=== PATIENT | male | born 1990 | race African-American/Black ===

== ENCOUNTER 2016-07-12 00:47 | Emergency (ER) | payer BC, OTHER ==
[~2016-07-12] VITALS: Ht 185.4 cm; Wt 88.0 kg
[~2016-07-12 00:47] MED LIST: DICL75TA PO
[2016-07-12 00:50] VITALS: BP 130/86; PULSE 61; RESP 16; TEMP 98.8; O2SAT 100
[2016-07-12] MEDS ORDERED: ASPIRIN 81 MG CHEW TAB PO ONE (01:30)
[2016-07-12] MEDS ORDERED: SODIUM CHLORIDE 0.9% FLUSH 10 ML FLUSH IVF PRN (01:30)
[2016-07-12] MEDS ORDERED: SODIUM CHLORID 0.9% 500 ML INJ 500 ML IV ONE (01:30)
--- NOTE | 2016-07-12 01:42 | RADRPT ---
EXAM DATE/TIME: 07/12/2016 01:22 [facility] COMPARISON: No previous studies available for comparison. INDICATIONS : Chest pain. MEDICAL HISTORY : None. SURGICAL HISTORY : None. ENCOUNTER: Initial ACUITY: 1 day PAIN SCORE: 8/10 LOCATION: Bilateral chest FINDINGS: A single view of the chest demonstrates the lungs to be symmetrically aerated without evidence of mas s, infiltrate or effusion. The cardiomediastinal contours are unremarkable. Osseous structures are intact. CONCLUSION: 1. No acute cardiopulmonary disease. Enrique Calderon MD on July 12, 2016 at 1:41 Board Certified Radiologist. This report was verified electronically.
[2016-07-12 01:53] VITALS: RESP 18; O2SAT 100
[2016-07-12 01:55] VITALS: BP_SYST 116; BP_DIAS 58; BP_DIAS 63; PULSE 57; RESP 18; O2SAT 100
[2016-07-12 01:55] LABS: AUTOMATED NEUTROPHIL # 2.7 TH/MM3 (1.8-7.7); BASOPHIL # 0.1 TH/MM3 (0-0.2); BASOPHIL % 1.1 % (0.0-2.0); EOSINOPHIL # 0.2 TH/MM3 (0-0.4); EOSINOPHIL % 3.2 % (0.0-4.0); HEMATOCRIT 41.4 % (39.0-51.0); HEMO FLAGS DIFF FINAL; LYMPH % 36.9 % (9.0-44.0); MEAN CELL VOLUME 84.1 FL (80.0-100.0); MEAN CORPUSCULAR HGB CONC 34.5 % (32.0-36.0); MONO % 9.6 % (0.0-8.0); NEUT % 49.2 % (16.0-70.0); PLATELET COUNT 291 TH/MM3 (150-450); RED BLOOD COUNT 4.93 MIL/MM3 (4.50-5.90); RED CELL DISTRIBUTION WIDTH 12.9 % (11.6-17.2); WHITE BLOOD COUNT 5.4 TH/MM3 (4.0-11.0)
--- NOTE | 2016-07-12 02:10 | PD ---
HPI Chief Complaint: Chest Pain Time Seen by Provider: 01:00 Travel History International Travel<30 days: No Contact w/Intl Traveler<30days: No Traveled to known affect area: No History of Present Illness HPI The patient is a 25 year old male who presents to the [facility] emergency department with a history of chest pain that he reports began at approximately 7 :30 PM while he was walking up stairs. He reports that the pain is been constant since then. He reports that the pain is in the center of his chest and along the left pectoral muscle. The patient reports that the pain is reproducible with touching. He reports that it is worse with taking a deep breath. He reports that he does regularly do pushups, however he has not been doing more than usual. He denies any specific injury to the area. He reports that he does have shortness of breath associated with this. He reports that the pain is sharp in character. He denies having any diaphoresis, nausea or vomiting associated with this. He reports that he did have a cough and congestion that resolved a week and a half ago. He denies having any fevers. He denies having any personal history of hypertension, diabetes mellitus, hyperlipidemia, or any family history of heart disease. The patient does however smoke presently 2 cigars per week. On review of systems, the patient does report having diarrhea for the last 3 days, proximally 4 times per day. He reports that the stool is loose. He denies having any blood in his stool or black or tarry stools. The patient denies any neck pain, symptoms of indigestion or acid reflux, abdominal pain, urinary symptoms, or neurologic symptoms. 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 Diminished Hearing: No Ulcer: Yes Influenza Vaccination: No Past Surgical History Narrative Surgical The patient's past surgical history is significant for a left shoulder surgery. Valve Replacement: Yes (shoulder ) Other Surgery: Yes (SHOULDER) Social History Alcohol Use: Yes (OCCASSIONALLY) Tobacco Use: Yes (2 cigars per week) Substance Use: No Allergies-Medications (Allergen,Severity, Reaction): Coded Allergies: No Known Allergies (Unverified , 07/12/16) Reported Meds & Prescriptions Reported Meds & Active Scripts Active Flexeril (Cyclobenzaprine HCl) 10 Mg Tab 10 Mg PO TID PRN Naproxen EC (Naproxen) 500 Mg Tabdr 500 Mg PO BID PRN Review of Systems Except as stated in HPI: all other systems reviewed are Neg General / Constitutional: No: Fever Eyes: No: Visual changes HENT: No: Headaches, Congestion Cardiovascular: Positive: Chest Pain or Discomfort, Dyspnea on exertion Respiratory: Positive: Shortness of Breath, No: Cough Gastrointestinal: Positive: Diarrhea, Changes in Bowel Habits, No: Nausea, Vomiting, Abdominal Pain, Hematochezia, Indigestion, Loss of Appetite Genitourinary: No: Dysuria Musculoskeletal: No: Pain Skin: No Rash Neurologic: No: Weakness, Focal Abnormalities, Change in Mentation, Slurred Speech, Sensory Disturbance Psychiatric: No: Depression Endocrine: No: Polydipsia Hematologic/Lymphatic: No: Easy Bruising Physical Exam Narrative General: The patient is a well-developed well-nourished male in no acute distress. Head and Neck exam: Head is normocephalic atraumatic. Eyes: EOMI, pupils are equal round and reactive to light. Nose: Midline septum with pink mucous membranes Mouth: Dentition unremarkable. Moist mucus membranes. Posterior oropharynx is not erythematous. No tonsillar hypertrophy. Uvula midline. Airway patent. Neck: No palpable lymphadenopathy. No nuchal rigidity. No thyromegaly. Cardiovascular: Regular rate and rhythm without murmurs, gallops, or rubs. The patient has chest wall tenderness on palpation along the sternal border and the left pectoral muscle. No erythema or ecchymosis. No step-off or crepitus, no flail segment. Lungs: Clear to auscultation bilaterally. No wheezes, rhonchi, or rales. Abdomen: Soft, without tenderness to palpation in all 4 quadrants of the abdomen. No guarding, rebound, or rigidity. Normal bowel sounds are audible. No tenderness on palpation of McBurney's point. Extremities: No clubbing, cyanosis, or edema. 2+ pulses in all 4 extremities. No calf tenderness on palpation. Negative Homans sign. Back: No costovertebral angle tenderness to palpation. Neurologic Exam: Grossly nonfocal. Skin Exam: No rash noted. Intact skin that is warm and dry. Data Data Last Documented VS Vital Signs Date Time Temp Pulse Resp B/P Pulse Ox O2 Delivery O2 Flow Rate FiO2 07/12/16 01:55 57 18 116/58 100 Nasal Cannula 2 116/63 07/12/16 00:50 98.8 Orders Electrocardiogram (07/12/16 01:24) B-Type Natriuretic Peptide (07/12/16 01:24) Ckmb (Isoenzyme) Profile (07/12/16 01:24) Complete Blood Count With Diff (07/12/16 01:24) Comprehensive Metabolic Panel (07/12/16 01:24) D-Dimer (07/12/16 01:24) Troponin I (07/12/16 01:24) Lipase (07/12/16 01:24) Chest, Single Ap (07/12/16 01:24) Ecg Monitoring (07/12/16 01:24) Bilateral Bp Monitoring (07/12/16 01:24) Iv Access Insert/Monitor (07/12/16 01:24) Oximetry (07/12/16 01:24) Oxygen Administration (07/12/16 01:24) Aspirin Chew (Aspirin Chew) (07/12/16 01:30) Sodium Chloride 0.9% Flush (Ns Flush) (07/12/16 01:30) Sodium Chlorid 0.9% 500 Ml Inj (Ns 500 M (07/12/16 01:30) CKMB (07/12/16 01:47) CKMB% (07/12/16 01:47) Ketorolac Inj (Toradol Inj) (07/12/16 03:15) Labs Laboratory Tests Test 07/12/16 07/12/16 01:47 02:07 White Blood Count 5.4 TH/MM3 Red Blood Count 4.93 MIL/MM3 Hemoglobin 14.3 GM/DL Hematocrit 41.4 % Mean Corpuscular Volume 84.1 FL Mean Corpuscular Hemoglobin 29.0 PG Mean Corpuscular Hemoglobin 34.5 % Concent Red Cell Distribution Width 12.9 % Platelet Count 291 TH/MM3 Mean Platelet Volume 7.8 FL Neutrophils (%) (Auto) 49.2 % Lymphocytes (%) (Auto) 36.9 % Monocytes (%) (Auto) 9.6 % Eosinophils (%) (Auto) 3.2 % Basophils (%) (Auto) 1.1 % Neutrophils # (Auto) 2.7 TH/MM3 Lymphocytes # (Auto) 2.0 TH/MM3 Monocytes # (Auto) 0.5 TH/MM3 Eosinophils # (Auto) 0.2 TH/MM3 Basophils # (Auto) 0.1 TH/MM3 CBC Comment DIFF FINAL Differential Comment Sodium Level 141 MEQ/L Potassium Level 4.1 MEQ/L Chloride Level 107 MEQ/L Carbon Dioxide Level 28.9 MEQ/L Anion Gap 5 MEQ/L Blood Urea Nitrogen 10 MG/DL Creatinine 1.01 MG/DL Estimat Glomerular Filtration 110 ML/MIN Rate Random Glucose 83 MG/DL Calcium Level 8.9 MG/DL Total Bilirubin 0.3 MG/DL Aspartate Amino Transf 24 U/L (AST/SGOT) Alanine Aminotransferase 31 U/L (ALT/SGPT) Alkaline Phosphatase 73 U/L Total Creatine Kinase 485 U/L Creatine Kinase MB 3.3 NG/ML Creatine Kinase MB % 0.7 % Troponin I LESS THAN 0.02 NG/ML B-Type Natriuretic Peptide 7 PG/ML Total Protein 7.4 GM/DL Albumin 4.1 GM/DL Lipase 126 U/L D-Dimer Quantitative (PE/DVT) LESS THAN 0.19 MG/L FEU MDM Medical Decision Making Medical Screen Exam Complete: Yes Emergency Medical Condition: Yes Medical Record Reviewed: Yes Interpretation(s) Last Impressions Chest X-Ray 07/12/16 0124 Signed Impressions: Service Date/Time: Tuesday, July 12, 2016 01:22 - CONCLUSION: 1. No acute cardiopulmonary disease. Enrique Calderon MD Differential Diagnosis Pleurisy, versus costochondritis, versus pectoral muscle strain, versus acute coronary syndrome, versus pulmonary embolism, versus pneumothorax Narrative Course During the course of the patients emergency department visit, the patients history, examination, and differential diagnosis were reviewed with the patient. The patient had IV access obtained and blood work sent for analysis. The patient was placed on a sql etl developer with oximetry and blood pressure monitoring. An EKG was done on arrival. The patient's EKG shows a sinus rhythm heart rate of 61, no acute ST segment elevation or depression is noted. QRS duration is 92 ms, QTC 395 ms. The patient was initially provided aspirin 162 mg by mouth 1. The patients laboratory studies were reviewed and remarkable for a white count of 5.4, hemoglobin 14.3, platelets 291 monocytosis at 9.6, CMP is remarkable for CPK of 45, MB percent 0.7, troponin I less than 0.07, BNP is 7, lipase 126, d-dimer is less than 0.19 decreased the likelihood of pulmonary embolism in this patient with no other significant risk factors. Given the patient's negative troponin with persistent, constant pain and acute coronary syndrome is unlikely. The patient has reproducible pain with pain along the left pectoral muscle suggestive of a musculoskeletal strain. Radiology studies were reviewed and remarkable for a chest x-ray that shows no acute abnormality. The patient will be discharged home with an anti-inflammatory pain medication and a muscle relaxer. The patient was given Toradol 15 mg IV 1 for pain prior to discharge. The patient is resting comfortably and feels better, is alert and in no distress. The patients results and examination findings were discussed with the patient. The repeat examination is unremarkable and benign. The history, exam, diagnostic testing, and current condition do not suggest any significant pathology to warrant further testing, continued ED treatment, admission, or surgical evaluation at this point. The vital signs have been stable. The patient does not have uncontrollable pain, intractable vomiting, or other significant symptoms. The patient's condition is stable and appropriate for discharge. The patient will pursue further outpatient evaluation with a primary care physician or other designated or consulting physician as indicated in the discharge instructions. The patient expressed understanding and was agreeable with this plan. Diagnosis Primary Impression: Chest wall pain Referrals: Primary Care Physician 3 days Patient Instructions: Chest Wall Pain (ED), General Instructions, Muscle Strain (ED) Med/Other Pt SpecificInfo: Prescription(s) given Scripts Cyclobenzaprine (Flexeril)10 Mg Tab10 Mg PO TID PRN (SPASM) #12 TAB Ref 0 Prov:Swati Deutsch MD 07/12/[address] (Naproxen EC)500 Mg [id number] Mg PO BID PRN (PAIN GREATER THAN 5) # 10 TAB Ref 0 Prov:Swati Deutsch MD 07/12/16 Disposition: 01 DISCHARGE HOME Condition: Stable Swati Deutsch MD July 12, 2016 02:10
[2016-07-12 02:19] LABS: ALT (GPT) 31 U/L (12-78); ANION GAP 5 MEQ/L (5-15); AST (GOT) 24 U/L (15-37); BICARBONATE 28.9 MEQ/L (21.0-32.0); BLOOD UREA NITROGEN 10 MG/DL (7-18); CHLORIDE 107 MEQ/L (98-107); GLOMERULAR FILTRATION RATE 110 ML/MIN (>89); POTASSIUM 4.1 MEQ/L (3.5-5.1); SODIUM (NA) 141 MEQ/L (136-145)
[2016-07-12 02:23] LABS: ALKALINE PHOSPHATASE 73 U/L (45-117); CREATINE KINASE 485 U/L (39-308); TOTAL BILIRUBIN ADULT 0.3 MG/DL (0.2-1.0)
[2016-07-12 02:36] LABS: CKMB 3.3 NG/ML (0.5-3.6)
[2016-07-12] MEDS ORDERED: KETOROLAC TROMETHAMINE 30 MG/ML (IVP) VIAL IV PUSH ONE (03:15)
[2016-07-12] MEDS ORDERED: CYCL1TAB29 PO (03:23)
[2016-07-12] MEDS ORDERED: NAPR1TAB34 PO (03:23)
--- NOTE | 2016-07-12 11:54 | EKG ---
Date Performed: 07/12/2016 Time Performed: 01:13:14 PTAGE: 25 years EKG: Sinus rhythm NORMAL ECG NO PREVIOUS TRACING DOCTOR: Khang Benavidez Interpretating Date/Time 07/12/2016 11:51:37
== END 2016-07-12 03:41 | disposition home or self-care (01) ==
LOC: NEPE 00:47
DX: R07.89 Other chest pain (principal); R06.02 Shortness of breath; R19.7 Diarrhea, unspecified; F17.290 Nicotine dependence, other tobacco product, uncomplicated
CPT/HCPCS: 71010; 80053; 82550; 82552; 83690; 83880; 84484; 85025; 85379; 93005; J1885; J7040; 96361; 96374

== ENCOUNTER 2016-11-29 11:05 | Emergency (ER) | payer BC ==
[~2016-11-29] VITALS: Ht 190.5 cm; Wt 140.0 kg
[~2016-11-29 11:05] MED LIST changes: +CYCL1TAB29 PO; -DICL75TA PO; +NAPR1TAB34 PO
[2016-11-29 11:07] VITALS: BP 131/69; PULSE 66; RESP 14; TEMP 98.3; O2SAT 100
--- NOTE | 2016-11-29 11:16 | PD ---
HPI Chief Complaint: Injury Time Seen by Provider: 11:16 Travel History International Travel<30 days: No Contact w/Intl Traveler<30days: No Traveled to known affect area: No History of Present Illness HPI 26-year-old male presents emergency Department with complaint of left hand pain 3 days after injuring it while playing basketball. Denies paresthesias, loss of sensation to the affected hand. Reports decreased range of motion of the thumb secondary to pain. Pain is located to the thenar eminence area. Has taken ibuprofen for symptom management. Has iced and elevated the hand also. Pain is aggravated with movement and palpation. Symptoms are mild in severity. Has no other medical complaints. No known allergies. No other modifying factors or associated signs and symptoms. PFSH Past Medical History Diminished Hearing: No Ulcer: Yes Past Surgical History Valve Replacement: Yes (shoulder ) Other Surgery: Yes (SHOULDER) Social History Alcohol Use: Yes (OCCASSIONALLY) Tobacco Use: Yes (2 cigars per week) Substance Use: No Allergies-Medications (Allergen,Severity, Reaction): Coded Allergies: No Known Allergies (Unverified , 11/29/16) Reported Meds & Prescriptions Reported Meds & Active Scripts Active Ibuprofen 800 Mg Tab 800 Mg PO Q6HR PRN Review of Systems Except as stated in HPI: all other systems reviewed are Neg Physical Exam Narrative GENERAL: Well-nourished, well-developed black male patient, in no acute distress SKIN: Warm and dry. HEAD: Atraumatic. Normocephalic. EYES: Pupils equal and round. No scleral icterus. No injection or drainage. ENT: Mucosa pink and moist. Airway patent. NECK: Trachea midline. CARDIOVASCULAR: Regular rate. RESPIRATORY: No accessory muscle use. GASTROINTESTINAL: Obese. MUSCULOSKELETAL: Left hand at the thenar eminence area with tenderness on palpation; with mild edema noted; without erythema or ecchymosis; decreased director of employee development strength; thumb with decreased range of motion at the MCP joint; all fingers with sensory intact; no obvious deformity; 2+ radial pulse. Left upper extremity is supple and non-tense without erythema or edema. No obvious deformities. No clubbing. No cyanosis. NEUROLOGICAL: Awake and alert. Oriented 3. No obvious cranial nerve deficits. Motor grossly within normal limits. Normal speech. PSYCHIATRIC: Appropriate mood and affect; insight and judgment normal. Data Data Last Documented VS Vital Signs Date Time Temp Pulse Resp B/P (MAP) Pulse Ox O2 Delivery O2 Flow Rate FiO2 11/29/16 11:21 Room Air 11/29/16 11:07 98.3 66 14 131/69 (89) 100 Orders Orders Hand, Complete ([id number]) (11/29/16 11:16) Ibuprofen (Motrin) (11/29/16 11:30) MDM Medical Decision Making Medical Screen Exam Complete: Yes Emergency Medical Condition: Yes Medical Record Reviewed: Yes Differential Diagnosis Thumb sprain, hand sprain, hand fracture, hand injury Narrative Course 26-year-old male with left hand injury. Ibuprofen administered in the ER. Left hand x-ray ordered. 1151: Left hand x-ray concludes no acute findings. X-ray report findings discussed with the patient. Ralph bandage provided for support. Instructed patient to follow up with primary care provider. Patient verbalizes understanding and agreement with treatment plan. Patient is medically cleared and stable for discharge. Discussed reasons to return to the emergency department. Patient agrees with treatment plan. The patients vital signs are stable and the patient is stable for outpatient follow-up and treatment. Patient discharged home, stable and in no acute distress. Diagnosis Primary Impression: Injury of left hand Qualified Codes: S69.92XA - Unspecified injury of left wrist, hand and finger( s), initial encounter Referrals: Primary Care Physician Patient Instructions: General Instructions, Hand Sprain (ED) Departure Forms: Tests/Procedures, Work Release Enter return to work date: Nov 30, 2016 Additional Instructions: Tylenol or ibuprofen as directed and as needed to reduce pain Rest, ice, compress, and elevate extremity to decrease pain and inflammation Ralph wrap for support Avoid aggravating activity; increase activity as tolerated Follow-up with primary care provider Return to the emergency department immediately with worsening symptoms Med/Other Pt SpecificInfo: Prescription(s) given Scripts Ibuprofen (Ibuprofen) 800 Mg Tab 800 MG PO Q6HR Y for PAIN, #30 TAB 0 Refills Prov: Janneth Gao 11/29/16 Disposition: 01 DISCHARGE HOME Condition: Stable Janneth Gao Nov 29, 2016 11:16
[2016-11-29] MEDS ORDERED: IBUPROFEN 800 MG TAB PO ONE (11:30)
[2016-11-29] MEDS ORDERED: IBUP800T23 PO (11:44)
--- NOTE | 2016-11-29 11:49 | RADRPT ---
EXAM DATE/TIME: 11/29/2016 11:35 [facility] COMPARISON: No previous studies available for comparison. INDICATIONS : Left hand pain and first digit swelling after hurting it playing basketball. MEDICAL HISTORY : None. SURGICAL HISTORY : None. ENCOUNTER: Initial ACUITY: 3 days PAIN SCORE: 7/10 LOCATION: Left Hand. FINDINGS: Three view examination of the left hand demonstrates no soft tissue swelling, dislocation, or fractur e. The carpal bones appear intact. The interphalangeal and metacarpophalangeal joints are intact. Bony mineralization is normal. CONCLUSION: No acute fracture. Nabil Joseph MD on November 29, 2016 at 11:46 Board Certified Radiologist. This report was verified electronically.
== END 2016-11-29 12:07 | disposition home or self-care (01) ==
LOC: NEPK 11:05
DX: S69.92XA Unspecified injury of left wrist, hand and finger(s), initial encounter (principal); Y93.67 Activity, basketball; F17.290 Nicotine dependence, other tobacco product, uncomplicated
CPT/HCPCS: 73130; 99283

== ENCOUNTER 2016-12-02 18:53 | Emergency (ER) | payer BC ==
[~2016-12-02] VITALS: Ht 190.5 cm; Wt 136.0 kg
[~2016-12-02 18:53] MED LIST changes: -CYCL1TAB29 PO; +IBUP800T23 PO; -NAPR1TAB34 PO
[2016-12-02 18:55] VITALS: BP 126/78; PULSE 78; RESP 13; TEMP 98.8; O2SAT 99
--- NOTE | 2016-12-02 19:34 | PD ---
HPI Chief Complaint: Injury Time Seen by Provider: 19:24 Travel History International Travel<30 days: No Contact w/Intl Traveler<30days: No Traveled to known affect area: No History of Present Illness HPI 26-year-old male presents to the emergency department requesting FMLA paperwork for a left thumb injury sustained 3 days ago. Patient was seen and evaluated here in the emergency department. He was diagnosed with a left hand injury and discharged. X-ray imaging was negative at that time. 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 Patient has not followed up with a primary or hand specialist. States the pain is constant, aching, at the MCP joint of the left thumb. Range of motion is limited and exacerbates the pain. Denies any alterations in the distal affected digit. He has no other symptoms to report. PFSH Past Medical History Medical History: Denies Significant Hx Diminished Hearing: No Ulcer: Yes Tetanus Vaccination: < 5 Years Influenza Vaccination: No Past Surgical History Valve Replacement: Yes (shoulder ) Other Surgery: Yes (SHOULDER) Social History Alcohol Use: No (denies) Tobacco Use: No Substance Use: No Allergies-Medications (Allergen,Severity, Reaction): Coded Allergies: No Known Allergies (Unverified , 11/29/16) Reported Meds & Prescriptions Reported Meds & Active Scripts Active Ibuprofen 800 Mg Tab 800 Mg PO Q6HR PRN Review of Systems Except as stated in HPI: all other systems reviewed are Neg Physical Exam Narrative GENERAL: Well-nourished, well-developed male patient, in no acute distress. SKIN: Focused skin assessment warm/dry. HEAD: Normocephalic. EYES: No scleral icterus. No injection or drainage. NECK: Supple, trachea midline. No JVD or lymphadenopathy. CARDIOVASCULAR: Regular rate and rhythm without murmurs, gallops, or rubs. RESPIRATORY: Breath sounds equal bilaterally. No accessory muscle use. MUSCULOSKELETAL: No cyanosis, or edema. Patient has tenderness elicited palpation over that MCP joint of the left thumb. There is no deformity. No significant edema. Patient is unable to give a complete thumbs up due to pain. He can touch thumb to all of the other digits of the affected extremity without difficulty. Cap refill is within normal limits. Distal pulses are palpable. BACK: Nontender without obvious deformity. No CVA tenderness. Data Data Last Documented VS Vital Signs Date Time Temp Pulse Resp B/P (MAP) Pulse Ox O2 Delivery O2 Flow Rate FiO2 12/02/16 20:06 12/02/16 18:55 98.8 78 13 99 Orders Orders Splint Or Brace Apply/Monitor (12/02/16 19:30) Ibuprofen (Motrin) (12/02/16 19:45) Fiberglass Thumb Spica Adult (12/02/16 ) MDM Medical Decision Making Medical Screen Exam Complete: Yes Emergency Medical Condition: Yes Medical Record Reviewed: Yes Differential Diagnosis Thumb sprain versus jammed thumb versus contusion versus dislocation versus fracture Narrative Course 26-year-old male presents to emergency department for evaluation of left thumb injury. Patient was seen and evaluated 3 days ago with x-ray revealing no acute bony abnormality. Based on assessment today, I do feel the patient would benefit from a thumb spica splint and follow-up with a hand specialist. I will give him additional time off work, but advised to follow-up with primary care provider or hand specialist to complete FMLA paperwork if needed. He verbalizes understanding. He already has ibuprofen prescribed to him for pain control. He will not be getting any additional pain control here today prescribed to him. He agrees to return immediately with any acute worsening symptoms. Diagnosis Primary Impression: Left thumb sprain Qualified Codes: S63.642A - Sprain of metacarpophalangeal joint of left thumb , initial encounter Referrals: Issa Almonte MD,Mouna Guerrero MD [facility] Patient Instructions: General Instructions, Skier's Thumb (ED) Departure Forms: Tests/Procedures, Work Release Enter return to work date: Dec 07, 2016 Additional Instructions: Wear splint Do not get it wet Do not remove it Follow-up with a hand specialist. Call Monday to make an appointment Ice and elevate to reduce pain and swelling Continue pain medication as prescribed Is important that he establish care with primary care provider Return immediately to the emergency department with any acute worsening symptoms Med/Other Pt SpecificInfo: No Change to Meds Disposition: 01 DISCHARGE HOME Condition: Stable AndrewDelmi LOVING Dec 02, 2016 19:34
[2016-12-02] MEDS ORDERED: IBUPROFEN 800 MG TAB PO ONE (19:45)
== END 2016-12-02 20:07 | disposition home or self-care (01) ==
LOC: NEPK 18:53
DX: S63.642A Sprain of metacarpophalangeal joint of left thumb, initial encounter (principal); X58.XXXA Exposure to other specified factors, initial encounter
CPT/HCPCS: 99283; L3808